=== PATIENT | male | born 2000 | race Caucasian/White ===

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

== ENCOUNTER → 2018-10-25 | Outpatient (REF) | payer OTHER ==
[2018-10-28 18:18] LABS: INFLUENZA A AMPLIFICATION POSITIVE (NEGATIVE); INFLUENZA B AMPLIFICATION NEGATIVE (NEGATIVE)
== END ==
LOC: M LAB REF 18:08
PROVIDERS: ATTEND Physician Assistant Medical
DX: J11.1 Influenza due to unidentified influenza virus with other respiratory manifestations (principal)

== ENCOUNTER 2018-11-10 22:23 | Emergency (ER) | payer OTHER ==
[~2018-11-10] VITALS: Ht 180.3 cm; Wt 111.4 kg
[2018-11-10 22:24] VITALS: BP 133/88
[2018-11-10] MEDS ORDERED: IBUP-1022 PO (22:44)
[2018-11-10] MEDS ORDERED: IBUPROFEN 600 MG TAB PO ONE (22:45)
--- NOTE | 2018-11-10 23:11 | REP ---
Clinical: Pain and swelling. Technique: AP, lateral, bilateral oblique views of the left ankle. Findings: Moderate swelling. No obvious acute fracture or dislocation appreciated. The skeletal structures appear intact. Joint spaces and ankle mortise appear relatively normal. No subcutaneous emphysema or foreign body. Impression: Swelling. No obvious acute fracture or dislocation. Electronically Signed by Alistair Huerta MD 11/10/2018 11:02 P
== END 2018-11-10 23:02 | disposition home or self-care (01) ==
LOC: M ED 22:23
DX: S93.402A Sprain of unspecified ligament of left ankle, initial encounter (principal); X50.9XXA Other and unspecified overexertion or strenuous movements or postures, initial encounter; Y92.009 Unspecified place in unspecified non-institutional (private) residence as the place of occurrence of the external cause; Z88.5 Allergy status to narcotic agent

== ENCOUNTER 2019-07-07 06:12 | Emergency (ER) | payer BC, OTHER, SELFPAY ==
[~2019-07-07] VITALS: Ht 180.3 cm; Wt 116.4 kg
[~2019-07-07 06:12] MED LIST: IBUP-1022 PO
[2019-07-07 06:46] LABS: BASO % 0.3 % (0.0-1.0); EOS % 0.7 % (0.0-3.0); HEMATOCRIT 45.3 % (42.0-52.0); HEMOGLOBIN 15.1 g/dl (13.5-17.5); LYMPH # 2.5 10^3/uL (1.5-5.0); LYMPH % 41.2 % (24.0-44.0); MEAN CORPUSCULAR HEMOGLOBIN 29.8 pg (27.0-33.0); MEAN CORPUSCULAR HGB CONC 33.3 g/dl (32.0-36.5); MEAN CORPUSCULAR VOLUME 89.3 fl (80.0-96.0); MONO # 0.5 10^3/uL (0.0-0.8); MONO % 7.5 % (0.0-5.0); NEUTROPHILS % 50.1 % (36.0-66.0); PLATELET COUNT, AUTOMATED 207 10^3/uL (150-450); RED BLOOD COUNT 5.07 10^6/uL (4.30-6.10)
[2019-07-07 07:11] LABS: BLOOD UREA NITROGEN 15 MG/DL (7-18); CALCIUM LEVEL 8.7 MG/DL (8.5-10.1); CARBON DIOXIDE LEVEL 28 MEQ/L (21-32); CHLORIDE LEVEL 110 MEQ/L (98-107); CREATININE FOR GFR 0.95 MG/DL (0.70-1.30); GLUCOSE, FASTING 109 MG/DL (70-100); SODIUM LEVEL 143 MEQ/L (136-145)
[2019-07-07] MEDS ORDERED: ONDA4TAB6 PO (07:16)
--- NOTE | 2019-07-07 07:42 | ECGEPIP ---
[facility] [place] - ED Test Date: 2019-07-07 Pat Name: ADRIANA OLSON Department: Room: - Gender: Male [employer] Operations [employer]: : 2000 Requested By: STACEY HOUSTON Order Number: [id number] Reading MD: Rayshawn Brunson Measurements Intervals [place] Rate: 60 P: -8 GA: 145 QRS: 6 QRSD: 111 T: 23 QT: 376 QTc: 376 Interpretive Statements SINUS RHYTHM MODERATE INTRAVENTRICULAR CONDUCTION DELAY BENIGN EARLY REPOLARIZATION NO PRIORS FOR COMPARISON Electronically Signed on 07-07-2019 7:41:40 EST by Rayshawn Brunson
[2019-07-07 07:58] VITALS: BP 128/80
== END 2019-07-07 07:59 | disposition home or self-care (01) ==
LOC: M ED 06:12
DX: R55 Syncope and collapse (principal); Z88.5 Allergy status to narcotic agent

== ENCOUNTER 2022-12-02 12:13 | Emergency (ER) | payer BC, MEDICAID ==
[~2022-12-02] VITALS: Ht 180.3 cm; Wt 140.4 kg
[2022-12-02 12:13] VITALS: BP 131/88
[~2022-12-02 12:13] MED LIST changes: +ONDA4TAB6 PO
== END 2022-12-02 12:37 | disposition left against medical advice (07) ==
LOC: M ED 12:13
DX: Z53.21 Procedure and treatment not carried out due to patient leaving prior to being seen by health care provider (principal)

== ENCOUNTER 2023-03-28 14:58 | Emergency (ER) | payer MEDICAID ==
[~2023-03-28] VITALS: Ht 180.3 cm; Wt 146.8 kg
[2023-03-28] MEDS ORDERED: CEFD300CAP PO (15:04)
[2023-03-28] MEDS ORDERED: KETOROLAC 30 MG/ML 1ML VIAL IV ONE (17:20)
[2023-03-28] MEDS ORDERED: LIDOCAINE 5% (LIDODERM) PATCH TD ONE (17:20)
[2023-03-28] MEDS ORDERED: LIDO1PAD13 TOP (18:30)
[2023-03-28 18:42] VITALS: BP 128/78; TEMP 97.7; O2SAT 99
== END 2023-03-28 18:44 | disposition home or self-care (01) ==
LOC: M ED 14:58
DX: S23.3XXA Sprain of ligaments of thoracic spine, initial encounter (principal); X50.0XXA Overexertion from strenuous movement or load, initial encounter; Y92.89 Other specified places as the place of occurrence of the external cause; Y93.89 Activity, other specified; Y99.0 Civilian activity done for income or pay; Z88.5 Allergy status to narcotic agent
CPT/HCPCS: 99283; J1885

== ENCOUNTER 2023-09-05 20:20 | Emergency (ER) | payer MEDICAID ==
[~2023-09-05] VITALS: Ht 180.3 cm; Wt 151.3 kg
[~2023-09-05 20:20] MED LIST changes: +CEFD300CAP PO; +LIDO1PAD13 TOP
[2023-09-05 22:56] LABS: APPEARANCE, URINE HAZY (CLEAR); BACTERIA, URINE AUTO NEGATIVE (NEGATIVE); BILIRUBIN, URINE AUTO NEGATIVE (NEGATIVE); BLOOD, URINE BLOOD NEGATIVE (NEGATIVE); COLOR, URINE YELLOW (YELLOW); GLUCOSE, URINE (UA) AUTO NEGATIVE (NEGATIVE); KETONE, URINE AUTO NEGATIVE (NEGATIVE); LEUKOCYTE ESTERASE, URINE AUTO 2+ (NEGATIVE); MUCUS, URINE SMALL (NEGATIVE); NITRITE, URINE AUTO NEGATIVE (NEGATIVE); PROTEIN, URINE AUTO NEGATIVE (NEGATIVE); RBC, URINE AUTO 4 /HPF (0-3); SPECIFIC GRAVITY URINE AUTO 1.025 (1.002-1.035); SQUAMOUS EPITHELIAL CELL UR AU 2 /HPF (0-6); UROBILINOGEN, URINE AUTO 0.2 mg/dL (0.0-2.0); WBC, URINE AUTO 84 /HPF (0-3)
[2023-09-05] MEDS ORDERED: ONDANSETRON 4MG ORAL DISINTEGRATING TAB PO ONE (23:50)
[2023-09-05] MEDS ORDERED: metroNIDAZOLE (FLAGYL) 500MG TABLET PO ONE (23:50)
[2023-09-06 00:44] VITALS: BP 133/85; TEMP 97.6; O2SAT 99
== END 2023-09-06 00:46 | disposition home or self-care (01) ==
LOC: M ED 20:20
DX: A59.9 Trichomoniasis, unspecified (principal); Z88.5 Allergy status to narcotic agent; Z79.899 Other long term (current) drug therapy; Z79.2 Long term (current) use of antibiotics

== ENCOUNTER → 2024-04-01 | Outpatient (CLI) | payer MEDICAID ==
[~2024-04-01] MED LIST changes: +ONDA-282 PO; -ONDA4TAB6 PO
[2024-04-01 19:25] LABS: HEMOGLOBIN A1c 5.1 % (4.0-6.0)
[2024-04-01 19:38] LABS: THYROID STIMULATING HORMONE 1.141 uIU/ML (0.55-4.78)
[2024-04-01 19:40] LABS: ALBUMIN 3.9 G/DL (3.2-5.2); ALKALINE PHOSPHATASE 94 U/L (46-116); ALT/SGPT 53 U/L (7.0-40); AST/SGOT 30 U/L (<34); BILIRUBIN,TOTAL 0.9 MG/DL (0.3-1.2); BLOOD UREA NITROGEN 11 MG/DL (9-23); CALCIUM LEVEL 9.5 MG/DL (8.5-10.1); CARBON DIOXIDE LEVEL 31 MMOL/L (20-31); CHLORIDE LEVEL 105 MMOL/L (98-107); CHOLESTEROL LEVEL 183 MG/DL (<200); CHOLESTEROL RISK RATIO 6.95 (<5); GLOMERULAR FILTRATION RATE > 60.0 (>60); GLUCOSE, FASTING 87 MG/DL (60-100); HDL CHOLESTEROL 26.3 MG/DL (>40); LDL CHOLESTEROL 122.9 MG/DL (<100); NON-HDL-C 156.7 MG/DL; SODIUM LEVEL 140 MMOL/L (136-145); TOTAL PROTEIN 7.3 G/DL (5.7-8.2); TRIGLYCERIDES LEVEL 169 MG/DL (<150)
[2024-04-01 20:03] LABS: HIV 1&2 SCREEN NEGATIVE (NEGATIVE)
[2024-04-01 20:11] LABS: HEPATITIS C VIRUS ABY INDEX < 0.02 INDEX (<0.8)
== END ==
LOC: M PLALAB 15:18
PROVIDERS: ATTEND Family Medicine
DX: E66.01 Morbid (severe) obesity due to excess calories (principal); Z68.41 Body mass index [BMI] 40.0-44.9, adult; Z13.6 Encounter for screening for cardiovascular disorders